=== PATIENT | female | born 1990 | race Caucasian/White ===

== ENCOUNTER 2019-05-27 17:16 | Inpatient (IN) | payer MEDICAID, OTHER ==
[~2019-05-27] VITALS: Ht 154.9 cm; Wt 65.3 kg
[2019-05-27] MEDS ORDERED: FLUORESCEIN SODIUM 1MG/STRIP LEFTEYE ONE (22:45)
[2019-05-27] MEDS ORDERED: TETRACAINE 0.5% OPHTH DROPS 4ML LEFTEYE ONE (22:45)
[2019-05-27 23:03] LABS: BASOPHILS % 0.8 % (0.0-2.0); EOSINOPHILS % 1.7 % (0.0-5.0); HEMATOCRIT. 39.5 % (36.0-48.0); HEMOGLOBIN. 13.8 g/dL (12.0-16.0); LYMPHOCYTES % 40.6 % (20.0-50.0); MEAN CORPUSCULAR HEMOGLOBIN 31.2 pg (28.0-32.0); MEAN CORPUSCULAR VOLUME 89.7 fL (81.0-99.0); MEAN PLATELET VOLUME 6.9 fl (7.4-10.4); MONOCYTES % 9.6 % (2.0-8.0); NEUTROPHILS % 47.3 % (40.0-76.0); PLATELET 262 x1000/uL (130-400); RED BLOOD CELL COUNT 4.41 mill/uL (4.2-5.4); RED CELL DISTRIBUTION WIDTH 12.1 % (11.6-14.6)
[2019-05-27 23:10] LABS: CHLORIDE 109 mEq/L (98-107)
[2019-05-28] MEDS ORDERED: CEFAZOLIN 1000MG PREMIX 50 ML IV ONE (00:45)
[2019-05-28] MEDS ORDERED: ACYCLOVIR INJ 500 MG in DEXT 5% WATER 100 ML IV SCH (00:45)
[2019-05-28] MEDS ORDERED: ACYCLOVIR INJ 500 MG in DEXT 5% WATER 100 ML IV NR (01:00)
[2019-05-28] MEDS ORDERED: ACETAMINOPHEN 325MG TABLET PO ONE (01:00)
[2019-05-28 03:00] VITALS: BP 117/82
[2019-05-28] MEDS ORDERED: CEFAZOLIN 1000MG PREMIX 50 ML IV SCH ×2 (04:30→10:00)
[2019-05-28] MEDS ORDERED: ACETAMINOPHEN 325MG TABLET PO PRN (04:30)
[2019-05-28] MEDS: ACYCLOVIR 400 MG TABLET PO SCH ×4 (08:48→17:00)
[2019-05-28 17:30] VITALS: BP 106/66
== END 2019-05-28 18:15 | disposition home or self-care (01) | DRG 566 ==
LOC: ER 17:16 → 6EST 05-28 01:19 → ENRESERV 05-28 01:46
PROVIDERS: ADMIT Hospitalist; ATTEND Hospitalist
DX: O98.511 Other viral diseases complicating pregnancy, first trimester (principal); B02.30 Zoster ocular disease, unspecified; Z3A.01 Less than 8 weeks gestation of pregnancy; O99.711 Diseases of the skin and subcutaneous tissue complicating pregnancy, first trimester; L30.9 Dermatitis, unspecified; O99.89 Other specified diseases and conditions complicating pregnancy, childbirth and the puerperium; L30.8 Other specified dermatitis
CPT/HCPCS: 36415; 80048; 84702; 93970; 99285; J0133; J0690; J7060